=== PATIENT | female | born 1950 | race African-American/Black ===

== ENCOUNTER 2019-08-26 16:55 | Emergency (ER) | payer MEDICARE, OTHER ==
[~2019-08-26] VITALS: Ht 167.6 cm; Wt 74.8 kg
--- NOTE | 2019-08-26 17:24 | NUR ---
ED Nurse Note: Pt walked in from home c/o burning with urination x 2 weeks. Per pt, she was being treated for UTI with abx and finished them last sunday, but the pain is back. No SOB noted. Vitals stable.
[2019-08-26 17:32] VITALS: BP 151/102
[2019-08-26 17:57] LABS: APPEARANCE,URINE CLEAR; BILIRUBIN, URINE NEGATIVE (NEGATIVE); COLOR,URINE PALE YELLOW; GLUCOSE, URINE (UA) NEGATIVE (NEGATIVE); KETONES,URINE NEGATIVE (NEGATIVE); LEUKOCYTE ESTERASE ,URINE 2+ (NEGATIVE); NITRITE,URINE NEGATIVE (NEGATIVE); PH,URINE 7 (4.5-8.0); PROTEIN,URINE NEGATIVE (NEGATIVE); UROBILINOGEN,URINE NORMAL MG/DL (0.0-1.0)
--- NOTE | 2019-08-26 18:28 | NUR ---
ED Nurse Note: ED PA @ bedside
[2019-08-26] MEDS ORDERED: Phenazopyridine 200mg tab ORAL ONE (18:30)
--- NOTE | 2019-08-26 18:34 | Emergency Room Report ---
History of Present Illness General Chief Complaint: Female Urogenital Problems Present Illness HPI 69-year-old female presents to the emergency department complaining of 8 out of 10 severity dysuria x2 weeks in addition to progressive diffuse body aches that are primarily in the joints. Patient reports that she just recently finished a course of antibiotics for UTI symptoms. Patient states she continues to have dysuria despite finishing course of antibiotics. Patient denies fevers or chills. She reports significant past medical history of high blood pressure and pacemaker placement. Patient denies trauma or fall. She denies any other symptoms at this time and does not have any aggravating or relieving factors. Patient reports she is only experiencing pain with urination and denies having urinary frequency, urgency, abdominal pain/tenderness, genital lesions or rashes. She denies itching. COVID-19 risk:Travel to affect: No Allergies: Coded Allergies: HYDROMORPHONE (Verified Adverse Reaction, Mild, ITCHING, 01/17/09) Patient History Past Medical History: see triage record Past Surgical History: none Pertinent Family History: none Now: No Reviewed Nursing Documentation: PMH: Agreed; PSxH: Agreed Nursing Documentation-PMH Past Medical History: No History, Except For Hx Cardiac Problems: Yes Hx Hypertension: Yes Hx Pacemaker: Yes Hx Asthma: No Hx COPD: No Hx Diabetes: No Hx Cancer: No Hx Gastrointestinal Problems: No Hx Dialysis: No History Of Psychiatric Problem: No Hx Neurological Problems: No Hx Cerebrovascular Accident: Yes Hx Seizures: No Review of Systems All Other Systems: negative except mentioned in HPI Physical Exam Vital Signs Date Time Temp Pulse Resp B/P (MAP) Pulse Ox O2 Delivery O2 Flow Rate FiO2 08/26/19 17:17 98.8 83 16 154/108 (123) 96 Room Air Sp02 EP Interpretation: reviewed, normal General Appearance: no apparent distress, alert, GCS 15, non-toxic Head: normocephalic, atraumatic Eyes: bilateral eye normal inspection, bilateral eye PERRL ENT: hearing grossly normal, normal voice Neck: full range of motion Respiratory: lungs clear, normal breath sounds, speaking full sentences Cardiovascular #1: regular rate, rhythm Gastrointestinal: normal bowel sounds, non tender, soft, non-distended, no guarding Genitourinary: normal inspection, no CVA tenderness Musculoskeletal: normal range of motion, gait/station normal, non-tender Neurologic: alert, motor strength/tone normal, oriented x3, sensory intact, responsive, speech normal Psychiatric: judgement/insight normal Skin: no rash, normal color, normal inspection Lymphatic: no adenopathy Medical Decision Making PA Attestation Dr. Moore is my supervising Physician whom patient management has been discussed with. Diagnostic Impression: Primary Impression: Dysuria Additional Impression: Body aches ER Course 69-year-old female presents to the emergency department complaining of 8 out of 10 severity dysuria x2 weeks in addition to progressive diffuse body aches that are primarily in the joints. Patient reports that she just recently finished a course of antibiotics for UTI symptoms. Patient states she continues to have dysuria despite finishing course of antibiotics. Patient denies fevers or chills. She reports significant past medical history of high blood pressure and pacemaker placement. Patient denies trauma or fall. She denies any other symptoms at this time and does not have any aggravating or relieving factors. Patient reports she is only experiencing pain with urination and denies having urinary frequency, urgency, abdominal pain/tenderness, genital lesions or rashes. She denies itching. Ddx considered but are not limited to UTi , Pyelo, STI, Stone, Cystitis Vital signs: are WNL, pt. is afebrile H&PE are most consistent with UTI ORDERS: - UA labs are attached --most indicative of contamination: presence of equal amounts of bacteria and squamous cells, no elevation in inflammatory markers, nitrite negative. ED INTERVENTIONS: Pyridium PO and Toradol IM -I do not identify an emergent condition at this time. With current presentation , pt. is stable for close outpatient follow up and conservative treatment. D/ w pt. to return promptly to ED with worsening or new symptoms.- Pt. verbalizes' understanding and agreement with proposed treatment plan. DISCHARGE: At this time pt. is stable for d/c to home. Will provide printed patient care instructions, and any necessary prescriptions. Care plan and follow up instructions have been discussed with the patient prior to discharge. Labs Test 08/26/19 17:33 Urine Color Pale yellow Urine Appearance Clear Urine pH 7 (4.5-8.0) Urine Specific [place] 1.010 (1.005-1.035) Urine Protein Negative (NEGATIVE) Urine Glucose (UA) Negative (NEGATIVE) Urine Ketones Negative (NEGATIVE) Urine Blood Negative (NEGATIVE) Urine Nitrite Negative (NEGATIVE) Urine Bilirubin Negative (NEGATIVE) Urine Urobilinogen Normal MG/DL (0.0-1.0) Urine Leukocyte Esterase 2+ (NEGATIVE) Urine RBC 0-2 /HPF (0 - 2) Urine WBC 2-4 /HPF (0 - 2) Urine Squamous Epithelial Cells Few /LPF (NONE/OCC) Urine Bacteria Few /HPF (NONE) Last Vital Signs Date Time Temp Pulse Resp B/P (MAP) Pulse Ox O2 Delivery O2 Flow Rate FiO2 08/26/19 17:32 98.5 82 16 151/102 96 Room Air Disposition: HOME, SELF-CARE Condition: Stable Scripts Phenazopyridine Hcl* (PYRIDIUM*) 200 Mg Tablet 200 MG ORAL THREE TIMES A DAY for 3 Days, #9 TAB 0 Refills Prov: Camilla Flowers 08/26/19 Naproxen* (NAPROXEN*) 375 Mg Tablet.dr 375 MG ORAL TWICE A DAY for 10 Days, #20 TAB Prov: Camilla Flowers 08/26/19 Patient Instructions: Dysuria, Joint Pain, Muscle Pain, Adult Additional Instructions: Take medications as directed. Follow up with a Primary Care Provider in 3-5 days, even if your symptoms have resolved. Return sooner to ED if new symptoms occur, or current symptoms become worse. - Please note that this Emergency Department Report was dictated using [employer] attendant technology software, occasionally this can lead to erroneous entry secondary to interpretation by the dictation equipment. Camilla Flowers Aug 26, 2019 18:34
[2019-08-26] MEDS ORDERED: PHENAZOPYRIDIN200 MG ORAL (18:36)
[2019-08-26] MEDS ORDERED: NAPROXEN375 M2 ORAL (18:36)
[2019-08-26] MEDS ORDERED: Ketorolac 30mg Inj ONE (18:36)
[2019-08-26] MEDS ORDERED: Ketorolac 30mg Inj IM ONE (18:45)
--- NOTE | 2019-08-26 18:50 | NUR ---
ER DISCHARGE NOTE: Patient is cleared to be discharged per ERMD, pt is aox4, on room air, with stable vital signs as documented. pt was given dc and prescription instructions and was able to verbalize understanding, pt id band removed. pt is able to ambulate with steady gait. pt took all belongings.
== END 2019-08-26 18:50 | disposition home or self-care (01) ==
LOC: EMR 18:40
DX: R30.0 Dysuria (principal); R52 Pain, unspecified; Z88.6 Allergy status to analgesic agent; I10 Essential (primary) hypertension; Z95.0 Presence of cardiac pacemaker; Z86.73 Personal history of transient ischemic attack (TIA), and cerebral infarction without residual deficits
CPT/HCPCS: 81003; 96372; 99283; J1885